=== PATIENT | female | born 1950 | race Caucasian/White ===

== ENCOUNTER → 2017-04-27 | Outpatient (CLI) | payer MEDICARE, OTHER ==
--- NOTE | 2017-04-27 16:07 | WOMENS IMAGING REPORT ---
EXAM DESCRIPTION: BILAT SCREENING MAMMO W/CAD COMPLETED DATE/TIME: 04/27/2017 7:26 am REASON FOR STUDY: ROUTINE BILATERAL SCREENING;Z12.31 Z12.31 ENCNTR SCREEN MAMMOGRAM FOR MALIGNANT N EOPLASM OF AMBER COMPARISON: None. TECHNIQUE: Standard craniocaudal and mediolateral oblique views of each breast recorded using made.coma l acquisition. LIMITATIONS: None. FINDINGS: No masses, calcifications or architectural distortion. No areas of suspicion. Read with the assistance of CAD. .[facility] - R2 Cenova Version 1.3 .[facility] Imaging - R2 Cenova Version 1.3 .[facility] - R2 Cenova Version 2.4 .[facility] [place] - R2 Cenova Version 2.4 .[facility] - R2 Contract Graphic Designer Version 9.2 IMPRESSION: NORMAL MAMMOGRAM. BIRADS 1. BREAST DENSITY: a. The breasts are almost entirely fatty. BIRAD: 1 NEGATIVE RECOMMENDATION: ROUTINE SCREENING COMMENT: The patient has been notified of the results by letter per SA requirements. Additional no tification policies are in place for contacting patient with suspicious or incomplete findings. Quality ID #[id number]: The [employer] recommends an annual screening mammogram for women aged 40 years or over. This facility utilizes a reminder system to ensure that all patients receive reminder letters, and/or direct phone calls for appointments. This includes reminders for routine scr eening mammograms, diagnostic mammograms, or other Breast Imaging Interventions when appropriate. Th is patient will be placed in the appropriate reminder system. The [employer] (ACR) has developed recommendations for screening MRI of the breast s in certain patient populations, to be used in conjunction with mammography. Breast MRI surveillanc e may be appropriate for women with more than 20% lifetime risk of developing breast cancer as deter mined by genetic testing, significant family history of the disease, or history of mantle radiation f or Hodgkins Disease. ACR Practice Guidelines 2008. TECHNICAL DOCUMENTATION: FINDING NUMBER: (1) ASSESSMENT: (1) JOB ID: [id number] [employer]- All Rights Reserved
== END ==
LOC: WI 06:55
PROVIDERS: ATTEND Family Medicine
DX: Z12.31 Encounter for screening mammogram for malignant neoplasm of breast (principal)
CPT/HCPCS: 77067; G0202

== ENCOUNTER → 2018-05-18 | Outpatient (CLI) | payer MEDICARE, OTHER ==
--- NOTE | 2018-05-18 11:40 | WOMENS IMAGING REPORT ---
EXAM DESCRIPTION: 3D SCREENING MAMMO BILAT COMPLETED DATE/TIME: 05/18/2018 7:25 am REASON FOR STUDY: ROUTINE BILATERAL SCREENING;Z12.31 Z12.31 ENCNTR SCREEN MAMMOGRAM FOR MALIGNANT N EOPLASM OF AMBER COMPARISON: [id number] TECHNIQUE: Standard craniocaudal and mediolateral oblique views of each breast recorded using digita l acquisition and breast tomosynthesis. LIMITATIONS: None. FINDINGS: No masses, calcifications or architectural distortion. No areas of suspicion. Read with the assistance of CAD. .[facility] [place] - R2 Cenova Version 1.3 .[facility] Imaging - R2 Cenova Version 1.3 .[facility] - R2 Cenova Version 2.4 .[facility] [place] R2 Cenova Version 2.4 .[facility] - R2 Resident Care Aid Version 9.2 IMPRESSION: NORMAL MAMMOGRAM. BIRADS 1. BREAST DENSITY: a. The breasts are almost entirely fatty. BIRAD: 1 NEGATIVE RECOMMENDATION: ROUTINE SCREENING COMMENT: The patient has been notified of the results by letter per MQSA requirements. Additional no tification policies are in place for contacting patient with suspicious or incomplete findings. Quality ID #225: The [employer] recommends an annual screening mammogram for women aged 40 years or over. This facility utilizes a reminder system to ensure that all patients receive reminder letters, and/or direct phone calls for appointments. This includes reminders for routine scr eening mammograms, diagnostic mammograms, or other Breast Imaging Interventions when appropriate. Th is patient will be placed in the appropriate reminder system. The [employer] (ACR) has developed recommendations for screening MRI of the breast s in certain patient populations, to be used in conjunction with mammography. Breast MRI surveillanc e may be appropriate for women with more than 20% lifetime risk of developing breast cancer as deter mined by genetic testing, significant family history of the disease, or history of mantle radiation f or Hodgkins Disease. ACR Practice Guidelines 2008. DBT Technology DBT is a type of tomographic mammography. With conventional mammography, overlapping breast tissue ma y make lesions difficult to detect, even with good compression. DBT uses an x-ray tube that rotates a round the breast, taking images at different angles. These images are then combined to create thin sl ices of the breast that the radiologist can view as a 3D reconstruction. The Paice unit can perform full-field digital mammograms (2D imaging); or DBT (3D imaging); or both, in a combination mode that quickly performs both the mammogram and the tomosynthesis scan while the breast is still compressed. PQRS 6045F: Fluoroscopic imaging is not utilized for breast tomosynthesis. TECHNICAL DOCUMENTATION: FINDING NUMBER: (1) ASSESSMENT: (1) JOB ID: [id number] [employer]- All Rights Reserved Reading location - IP/workstation name: [email or web address] [email or web address]
== END ==
LOC: WI 07:06
PROVIDERS: ATTEND Family Medicine
DX: Z12.31 Encounter for screening mammogram for malignant neoplasm of breast (principal)
CPT/HCPCS: 77063; 77067

== ENCOUNTER 2018-06-13 10:52 | Emergency (ER) | payer MEDICARE, OTHER ==
--- NOTE | 2018-06-13 11:31 | ER Document Report ---
ED Medical Screen (RME) - General Chief Complaint: Dizziness Stated Complaint: DIZZINESS/LOSS OF BALANCE Time Seen by Provider: 06/13/18 11:22 Primary Care Provider: NADEEM ROQUE MD [Primary Care Provider] - Follow up as needed Mode of Arrival: Ambulatory Information source: Patient Notes: 67-year-old female presents the emergency department with one-week history of feeling off balance. Patient states that when she walks she begins to wobble from side to side and feels as if she is going to fall down. No history of falls or head trauma. Patient states that is getting progressively worse. She is having bilateral earaches and sinus pressure. Denies vertigo, tinnitus, hearing loss, fever, chills. She went to urgent care this morning and they recommended she come to the emergency department for a head CT. I have greeted and performed a rapid initial assessment of this patient. A comprehensive ED assessment and evaluation of the patient, analysis of test results and completion of the medical decision making process will be conducted by additional ED providers. PHYSICAL EXAMINATION: GENERAL: Well-appearing, well-nourished and in no acute distress. HEAD: Atraumatic, normocephalic. EYES: Pupils equal round extraocular movements intact, conjunctiva are normal. ENT: Nares patent NECK: Normal range of motion LUNGS: No respiratory distress Musculoskeletal: Normal range of motion NEUROLOGICAL: Normal speech, normal gait. PSYCH: Normal mood, normal affect. SKIN: Warm, Dry, normal turgor, no rashes or lesions noted. TRAVEL OUTSIDE OF THE [place] IN LAST 30 DAYS: No - Related Data Allergies/Adverse Reactions: No Known Allergies Allergy (Verified 06/13/18 11:03) Past Medical History - Social History Chew tobacco use (# tins/day): No Frequency of alcohol use: None Drug Abuse: None - Past Medical History Cardiac Medical History: Reports: Hx Hypercholesterolemia, Hx Hypertension Endocrine Medical History: Reports: Hx Diabetes Mellitus Type 2 Renal/ Medical History: Denies: Hx Peritoneal Dialysis Past Surgical History: Reports: Hx Orthopedic Surgery - back & left hip replacement Physical Exam - Vital signs Vitals: Temp Pulse Resp BP Pulse Ox 99.0 F 79 20 150/71 H 95 06/13/18 11:06 06/13/18 11:06 06/13/18 11:06 06/13/18 11:06 06/13/18 11:06 Course - Vital Signs Vital signs: Temp Pulse Resp BP Pulse Ox 99.0 F 79 20 150/71 H 95 06/13/18 11:06 06/13/18 11:06 06/13/18 11:06 06/13/18 11:06 06/13/18 11:06 Doctor's Discharge - Discharge Referrals: NADEEM ROQUE MD [Primary Care Provider] - Follow up as needed
--- NOTE | 2018-06-13 12:26 | RADIOLOGY REPORT (SQ) ---
EXAM DESCRIPTION: CT HEAD WITHOUT COMPLETED DATE/TIME: 06/13/2018 12:16 pm REASON FOR STUDY: falling down COMPARISON: None. TECHNIQUE: Axial images acquired through the brain without intravenous contrast. Images reviewed wi th bone, brain and subdural windows. Additional sagittal and coronal reconstructions were generated. Images stored on PACS. All CT scanners at this facility use dose modulation, iterative reconstruction, and/or weight based d osing when appropriate to reduce radiation dose to as low as reasonably achievable (ALARA). [facility]: Dose Right [facility]: CareDose [facility]: Dose Right [facility]: Teradose 4D [facility]: XenSource RADIATION DOSE: CT Rad equipment meets quality standard of care and radiation dose reduction techniq ues were employed. CTDIvol: 53.2 mGy. DLP: 1017 mGy-cm. mGy. LIMITATIONS: None. FINDINGS: VENTRICLES: Normal size and contour. CEREBRUM: No masses. No hemorrhage. No midline shift. No evidence for acute infarction. Normal gra y/white matter differentiation. No areas of low density in the white matter. CEREBELLUM: No masses. No hemorrhage. No alteration of density. No evidence for acute infarction. EXTRAAXIAL SPACES: No fluid collections. No masses. ORBITS AND GLOBE: No intra- or extraconal masses. Normal contour of globe without masses. CALVARIUM: No fracture. PARANASAL SINUSES: No fluid or mucosal thickening. SOFT TISSUES: No mass or hematoma. OTHER: No other significant finding. IMPRESSION: No acute intracranial pathology. EVIDENCE OF ACUTE STROKE: NO. COMMENT: Quality ID # [id number]: Final reports with documentation of one or more dose reduction techniques (e.g., Automated exposure control, adjustment of the mA and/or kV according to patient size, use of iterative reconstruction technique) TECHNICAL DOCUMENTATION: JOB ID: [id number] [employer]- All Rights Reserved Reading location - IP/workstation name: [email or web address]
[2018-06-13] MEDS ORDERED: NORMAL SALINE 1000 ML 1,000 ML IV ONE (12:29)
[2018-06-13] MEDS ORDERED: MECLIZINE HCL 25 MG TABLET PO ONE (12:29)
--- NOTE | 2018-06-13 12:32 | ER Document Report ---
ED Dizziness/Weakness - General Chief Complaint: Dizziness Stated Complaint: DIZZINESS/LOSS OF BALANCE Time Seen by Provider: 06/13/18 11:22 Primary Care Provider: NADEEM ROQUE MD [Primary Care Provider] - Follow up as needed Mode of Arrival: Ambulatory Notes: 67-year-old female who presents with dizziness. Patient stated this began yesterday. She stated upon standing she felt dizzy. Says it is worse when she walks she gets a little short of breath with this but attributes this to anxiety. States when she sitting still she is not dizzy she denies any extremity numbness tingling or weakness. Nuys chest pain denies shortness of breath. Is concerned she may have a UTI she has had some decreased frequency. Denies abdominal pain. Denies falls or head injury. TRAVEL OUTSIDE OF THE [place] IN LAST 30 DAYS: No - Related Data Allergies/Adverse Reactions: No Known Allergies Allergy (Verified 06/13/18 11:03) Past Medical History - General Information source: Patient - Social History Smoking Status: Never Smoker Chew tobacco use (# tins/day): No Frequency of alcohol use: None Drug Abuse: None Family History: Other Patient has suicidal ideation: No Patient has homicidal ideation: No - Past Medical History Cardiac Medical History: Reports: Hx Hypercholesterolemia, Hx Hypertension Endocrine Medical History: Reports: Hx Diabetes Mellitus Type 2 Renal/ Medical History: Denies: Hx Peritoneal Dialysis Past Surgical History: Reports: Hx Orthopedic Surgery - back & left hip replacement Review of Systems - Review of Systems Cardiovascular: Dyspnea. denies: Chest pain Respiratory: Short of breath Gastrointestinal: denies: Abdominal pain, Nausea, Vomiting Genitourinary: Frequency. denies: Dysuria Neurological/Psychological: Headaches, Other - Dizziness -: Yes All other systems reviewed and negative Physical Exam - Vital signs Vitals: Temp Pulse Resp BP Pulse Ox 99.0 F 79 20 150/71 H 95 06/13/18 11:06 06/13/18 11:06 06/13/18 11:06 06/13/18 11:06 06/13/18 11:06 - Notes Notes: GENERAL_APPEARANCE: well_nourished, alert, cooperative, patient lying on the stretcher with eyes closed. VITALS: reviewed, see vital signs table. HEAD: no_swelling\tenderness on the head. EYES: PERRL, EOMI, conjunctiva_clear. NOSE: no_nasal_discharge. MOUTH: (-)decreased moisture. THROAT: no_tonsilar_inflammation, no_airway_obstruction. no_lymphadenopathy NECK: supple, no_neck_tenderness, (-)thyromegaly. BACK: no_back_tenderness. CHEST_WALL: no_chest_tenderness. LUNGS: no_wheezing, no_rales, no_rhonchi, (-)accessory muscle use, good air exchange bilateral. HEART: normal_rate, normal_rhythm, normal_S1, normal_S2, (-)S3, (-)S4, no_murmur, no_rub. ABDOMEN: normal_BS, soft, no_abd_tenderness, (-)guarding, (-)rebound, no_organomegaly, no_abd_masses. EXTREMITIES: good pulses in all_extremities, no_swelling\tenderness in the extremities, no_edema. SKIN: warm, dry, good_color, no_rash. MENTAL_STATUS: speech_clear, oriented_X_3, normal_affect, responds_appropriately to questions. NEURO: Neg Motor or Sensory Deficits on exam, CN 2-12 intact, DTR 2+ symmetric x 4, No cerbellar signs Course - Re-evaluation Re-evalutation: 06/13/18 12:31 Patient presents with dizziness. Which is worse upon standing and exerting herself. States is only when she really walks. Her neuro exam is nonfocal. The patient almost gives the impression she has vertigo but says she does not. She is sitting perfectly still on the stretcher with her eyes closed. She denies any vertigo at rest. Only when she stands and walks. We will get a CT scan of the brain check some generalized lab work. She is concerned she may have a UTI. Will check a urine. Even though she is denying vertigo we will give her a liter of fluid and some meclizine to see if this helps. 06/13/18 15:04 We got the patient up and walked her and she did fine and feels much better. Her dizziness had resolved. I will send her home on some meclizine. I sent spoke with her about what this could be possibly posterior circulation strokes she does have a UTI which it would be very atypical for this to cause dizziness. We spoke at length. She is comfortable going home with antibiotics and meclizine. If she has recurrent symptoms or things feel as if they are getting worse or not improving she is to return to the ER and have us reevaluate her. Again we spoke at length about posterior circulation strokes. - Vital Signs Vital signs: Temp Pulse Resp BP Pulse Ox 99.0 F 66 20 124/67 95 06/13/18 11:06 06/13/18 11:38 06/13/18 11:06 06/13/18 11:38 06/13/18 11:06 - Laboratory Result Diagrams: 06/13/18 13:10 06/13/18 12:50 Laboratory results interpreted by me: 06/13/18 06/13/18 06/13/18 12:50 12:50 13:10 RDW 14.3 H Chloride 108 H Glucose 119 H Urine Nitrite POSITIVE H Ur Leukocyte Esterase MODERATE H Urine Ascorbic Acid 40 H Discharge - Discharge Clinical Impression: Vertigo UTI (urinary tract infection) Qualifiers: Urinary tract infection type: acute cystitis Hematuria presence: without hematuria Qualified Code(s): N30.00 - Acute cystitis without hematuria Disposition: HOME, SELF-CARE Instructions: Urinary Tract Infection ([facility]), Vertigo ([facility]), Meclizine ([facility]) Additional Instructions: Take the vertigo every 6 hours as needed for dizziness. Drink plenty of fluids. Please take the antibiotics for urinary tract infection. If your symptoms recur and these are not helped by the medications return to the ER. Again we have spoke about posterior circulation/cerebellar strokes though I think this is less likely with you it is not completely ruled out. Follow-up is very important. Prescriptions: Meclizine HCl [Antivert 25 mg Tablet] 25 mg PO TID PRN #21 tablet PRN Reason: Nitrofurantoin/Nitrofuran Mac [Macrobid 100 mg Capsule] 1 tab PO BID #20 capsule Referrals: NADEEM ROQUE MD [Primary Care Provider] - Follow up as needed
[2018-06-13 13:14] LABS: APPEARANCE,URINE SLIGHTLY-CLOUDY; BILIRUBIN,URINE NEGATIVE (NEGATIVE); COLOR,URINE YELLOW; GLUCOSE, URINE NEGATIVE (NEGATIVE); KETONES,URINE NEGATIVE (NEGATIVE); LEUKOCYTE ESTERASE,URINE MODERATE (NEGATIVE); NITRITE,URINE POSITIVE (NEGATIVE); PROTEIN,URINE NEGATIVE (NEGATIVE); URINE SPECIFIC GRAVITY 1.019; UROBILINOGEN,URINE NEGATIVE mg/dL (<2.0)
[2018-06-13 13:26] LABS: ALANINE AMINOTRANSFERASE 47 U/L (9-52); ALBUMIN 4.5 g/dL (3.5-5.0); ALKALINE PHOSPHATASE 81 U/L (38-126); ANION GAP 11 (5-19); ASPARTATE AMINO TRANSFERASE 35 U/L (14-36); BILIRUBIN,DIRECT 0.1 mg/dL (0.0-0.4); BILIRUBIN,TOTAL 0.9 mg/dL (0.2-1.3); BLOOD UREA NITROGEN 18 mg/dL (7-20); CALCIUM 9.4 mg/dL (8.4-10.2); CARBON DIOXIDE 23 mmol/L (22-30); CHLORIDE 108 mmol/L (98-107); GLUCOSE 119 mg/dL (75-110); POTASSIUM 4.5 mmol/L (3.6-5.0); SODIUM 141.7 mmol/L (137-145)
[2018-06-13 13:32] LABS: ABSOLUTE BASOPHILS # (AUTO) 0.1 10^3/uL (0.0-0.2); ABSOLUTE EOSINOPHILS # (AUTO) 0.1 10^3/uL (0.0-0.6); ABSOLUTE LYMPHOCYTES (AUTO) 2.4 10^3/uL (0.5-4.7); ABSOLUTE MONOCYTES (AUTO) 0.5 10^3/uL (0.1-1.4); ABSOLUTE NEUT (AUTO) 5.9 10^3/uL (1.7-8.2); BASOPHILS % (AUTO) 0.8 % (0-2); EOSINOPHILS % (AUTO) 1.4 % (0-6); HEMATOCRIT 38.4 % (36.0-47.0); HEMOGLOBIN 12.8 g/dL (12.0-15.5); LYMPHOCYTES % (AUTO) 26.5 % (13-45); MEAN CORPUSCULAR HGB CONC 33.4 g/dL (32.0-36.0); MEAN CORPUSCULAR VOLUME 87 fl (80-97); MONOCYTES % (AUTO) 5.4 % (3-13); PLATELET COUNT 217 10^3/uL (150-450); RED BLOOD COUNT 4.42 10^6/uL (3.72-5.28); RED CELL DISTRIBUTION WIDTH 14.3 % (11.5-14.0); SEGMENTED NEUTROPHILS % (AUTO) 65.9 % (42-78); TOTAL CELLS COUNTED % (AUTO) 100 %; WHITE BLOOD COUNT 8.9 10^3/uL (4.0-10.5)
--- NOTE | 2018-06-13 13:56 | EKG REPORT ---
SEVERITY:- ABNORMAL ECG - SINUS RHYTHM NONSPECIFIC T ABNORMALITIES, LATERAL LEADS : Confirmed by: Srinivas Hayes MD 13-Jun-2018 13:56:01
[2018-06-13 15:34] VITALS: BP 142/74
== END 2018-06-13 15:10 | disposition home or self-care (01) ==
LOC: ER 10:52
DX: R42 Dizziness and giddiness (principal); N30.00 Acute cystitis without hematuria; R06.02 Shortness of breath; I10 Essential (primary) hypertension; E11.9 Type 2 diabetes mellitus without complications
CPT/HCPCS: 93005; 99284; 96360; 36415; 85025; 80053; 81001; 84484; 70450; 93010; A9270; J7030

== ENCOUNTER 2019-06-26 14:57 | Emergency (ER) | payer MEDICARE, OTHER ==
[2019-06-26] MEDS ORDERED: ONDANSETRON 4 MG TAB.RAPDIS PO ONE (15:35)
--- NOTE | 2019-06-26 15:37 | ER Document Report ---
ED Medical Screen (RME) - General Chief Complaint: High Blood Sugar Stated Complaint: NAUSEA/BLOOD SUGAR ISSUE Time Seen by Provider: 06/26/19 15:32 Primary Care Provider: NADEEM ROQUE MD [Primary Care Provider] - Follow up as needed Mode of Arrival: Ambulatory Information source: Patient Notes: 68-year-old female with no previous history presents emergency department with reports that they checked her sugar at the [employer] where she works and was in the high 400s. Patient reports she has had blurry vision for the last couple weeks figured it was time to get a pair of new glasses. She also reports she felt nauseated today not feeling well so her coworkers checked her vital signs. Her vital signs were stable so they checked her sugar. She denies history of diabetes. She reports she is a little bit thirsty but denies increased thirst increased urinary frequency. I have greeted and performed a rapid initial assessment of this patient. A co mprehensive ED assessment and evaluation of the patient, analysis of test results and completion of the medical decision making process will be conducted by additional ED providers. TRAVEL OUTSIDE OF THE [place] IN LAST 30 DAYS: No - Related Data Allergies/Adverse Reactions: No Known Allergies Allergy (Verified 06/26/19 15:31) Past Medical History - Past Medical History Cardiac Medical History: Reports: Hx Hypercholesterolemia, Hx Hypertension Endocrine Medical History: Reports: Hx Diabetes Mellitus Type 2 Renal/ Medical History: Denies: Hx Peritoneal Dialysis Past Surgical History: Reports: Hx Orthopedic Surgery - back & left hip replacement Physical Exam - Vital signs Vitals: Temp Pulse Resp BP Pulse Ox 99.7 F 98 18 150/88 H 96 06/26/19 15:15 06/26/19 15:15 06/26/19 15:15 06/26/19 15:15 06/26/19 15:15 Course - Vital Signs Vital signs: Temp Pulse Resp BP Pulse Ox 99.7 F 98 18 150/88 H 96 06/26/19 15:15 06/26/19 15:15 06/26/19 15:15 06/26/19 15:15 06/26/19 15:15 Doctor's Discharge - Discharge Referrals: NADEEM ROQUE MD [Primary Care Provider] - Follow up as needed
[2019-06-26] MEDS ORDERED: NORMAL SALINE 1000 ML 1,000 ML IV ONE ×2 (16:21→21:03)
[2019-06-26 16:37] LABS: ABSOLUTE BASOPHILS # (AUTO) 0.1 10^3/uL (0.0-0.2); ABSOLUTE EOSINOPHILS # (AUTO) 0.1 10^3/uL (0.0-0.6); ABSOLUTE MONOCYTES (AUTO) 0.6 10^3/uL (0.1-1.4); EOSINOPHILS % (AUTO) 0.9 % (0-6); TOTAL CELLS COUNTED % (AUTO) 100 %
[2019-06-26 16:44] LABS: APPEARANCE,URINE CLEAR; BILIRUBIN,URINE NEGATIVE (NEGATIVE); COLOR,URINE STRAW; GLUCOSE, URINE >=500 mg/dL (NEGATIVE); KETONES,URINE 20 mg/dL (NEGATIVE); LEUKOCYTE ESTERASE,URINE NEGATIVE (NEGATIVE); NITRITE,URINE NEGATIVE (NEGATIVE); PROTEIN,URINE NEGATIVE (NEGATIVE); URINE SPECIFIC GRAVITY 1.031; UROBILINOGEN,URINE NEGATIVE mg/dL (<2.0)
[2019-06-26 16:48] LABS: ABSOLUTE LYMPHOCYTES (AUTO) 1.4 10^3/uL (0.5-4.7); ABSOLUTE NEUT (AUTO) 6.8 10^3/uL (1.7-8.2); BASOPHILS % (AUTO) 0.6 % (0-2); HEMATOCRIT 40.4 % (36.0-47.0); HEMOGLOBIN 13.8 g/dL (12.0-15.5); LYMPHOCYTES % (AUTO) 15.4 % (13-45); MEAN CORPUSCULAR HGB CONC 34.2 g/dL (32.0-36.0); MEAN CORPUSCULAR VOLUME 88 fl (80-97); MONOCYTES % (AUTO) 6.6 % (3-13); PLATELET COUNT 238 10^3/uL (150-450); RED BLOOD COUNT 4.61 10^6/uL (3.72-5.28); RED CELL DISTRIBUTION WIDTH 14.2 % (11.5-14.0); SEGMENTED NEUTROPHILS % (AUTO) 76.5 % (42-78); WHITE BLOOD COUNT 8.9 10^3/uL (4.0-10.5)
[2019-06-26 16:56] LABS: ALBUMIN 4.3 g/dL (3.5-5.0); ALKALINE PHOSPHATASE 110 U/L (38-126); ANION GAP 14 (5-19); ASPARTATE AMINO TRANSFERASE 38 U/L (14-36); BILIRUBIN,DIRECT 0.1 mg/dL (0.0-0.4); BLOOD UREA NITROGEN 14 mg/dL (7-20); CALCIUM 9.6 mg/dL (8.4-10.2); CARBON DIOXIDE 23 mmol/L (22-30); CHLORIDE 98 mmol/L (98-107); POTASSIUM 4.5 mmol/L (3.6-5.0); TOTAL PROTEIN 7.3 g/dL (6.3-8.2)
[2019-06-26 17:17] LABS: GLUCOSE 558 mg/dL (75-110)
[2019-06-26] MEDS ORDERED: INSULIN REG, HUMAN 100 UNIT/ML 3 ML VIAL (PYX) SUBCUT ONE (17:27)
[2019-06-26 17:33] LABS: VENOUS BLOOD BASE EXCESS -2.1 mmol/L; VENOUS BLOOD HCO3 21.9 mmol/L (20-32); VENOUS BLOOD PCO2 35.3 mmHg (35-63); VENOUS BLOOD PH 7.41 (7.30-7.42)
--- NOTE | 2019-06-26 20:28 | ER Document Report ---
ED Blood Sugar Problem - General Chief Complaint: High Blood Sugar Stated Complaint: NAUSEA/BLOOD SUGAR ISSUE Time Seen by Provider: 06/26/19 15:32 Primary Care Provider: NADEEM ROQUE MD [Primary Care Provider] - Follow up tomorrow Mode of Arrival: Ambulatory Notes: Patient is a 68-year-old female with a history of type 2 diabetes who presents the emergency department with blurriness and feeling faint earlier today. She was seen by her primary care provider and her blood sugar was high. She was then referred to the emergency department. Patient currently takes metformin daily and sometimes takes it twice a day, or sometimes takes it at night. She takes a total of 2000 mg daily. Patient also states that there has been a "gastrointestinal bug going around" at her work. She is a nursing executive. She received Zofran in triage and states that she does feel better. TRAVEL OUTSIDE OF THE [place] IN LAST 30 DAYS: No - Related Data Allergies/Adverse Reactions: No Known Allergies Allergy (Verified 06/26/19 15:31) Past Medical History - General Information source: Patient - Social History Smoking Status: Never Smoker Chew tobacco use (# tins/day): No Frequency of alcohol use: None Drug Abuse: None Family History: Other Patient has suicidal ideation: No Patient has homicidal ideation: No - Past Medical History Cardiac Medical History: Reports: Hx Hypercholesterolemia, Hx Hypertension Endocrine Medical History: Reports: Hx Diabetes Mellitus Type 2 Renal/ Medical History: Denies: Hx Peritoneal Dialysis Past Surgical History: Reports: Hx Orthopedic Surgery - back & left hip replacement Review of Systems - Review of Systems Notes: REVIEW OF SYSTEMS: CONSTITUTIONAL : Denies recent illness. Denies recent unintentional weight loss. Denies fever, chills, or sweats. HPI. EENT: Denies eye, ear, throat, or mouth pain, discharge, or symptoms. Denies nasal or sinus congestion. See HPI. CARDIOVASCULAR: Denies chest pain. RESPIRATORY: Denies shortness of breath, cough, congestion, difficulty breathing, or wheezing. GASTROINTESTINAL: Denies nausea, vomiting, and diarrhea. Denies abdominal pain. Denies constipation. GENITOURINARY: Denies difficulty urinating, burning, blood in urine, urgency or frequency. MUSCULOSKELETAL: Denies neck and back pain. Denies joint pain or swelling. SKIN: Denies rash, itchiness, or lesions HEMATOLOGIC : Denies easy bruising or bleeding. LYMPHATIC: Denies swollen, painful, enlarged glands. NEUROLOGICAL: Denies no numbness or tingling denies weakness. Denies headache. Denies altered mental status. Denies alteration in speech. PSYCHIATRIC: Denies stress, anxiety, alteration in sleep patterns, or dep ression. All other systems reviewed and negative. Physical Exam - Vital signs Vitals: Temp Pulse Resp BP Pulse Ox 99.7 F 98 18 150/88 H 96 06/26/19 15:15 06/26/19 15:15 06/26/19 15:15 06/26/19 15:15 06/26/19 15:15 - Notes Notes: PHYSICAL EXAMINATION: GENERAL: Appears well, healthy, well-nourished, no acute distress. HEAD: Normocephalic, atraumatic. EYES: PERRL, conjunctiva normal, all extraocular movements intact, sclera nonicteric ENT: Moist mucous membranes. NECK: Supple, no noticeable swelling, redness, rash. Normal range of motion. LUNGS: Equal breath sounds bilaterally and clear to auscultation. No wheezes rales or rhonchi. CARDIOVASCULAR: S1-S2, regular rate, regular rhythm. Radial pulses 2+, normal. ABDOMEN: Normoactive bowel sounds. Soft, nontender, no guarding, no rebound tenderness, and no masses palpated. EXTREMITIES: Normal strength and range of motion, no pitting or edema. No cyanosis. NEUROLOGICAL: Moves all extremities upon command. Strength 5/5 in all extremities. PSYCH: Normal mood, normal affect. SKIN: Warm, dry. No rash, lesions, ulcerations noted. Normal skin turgor. Course - Re-evaluation Re-evalutation: 06/26/19 20:27 Hematology is unremarkable with no leukocytosis or anemia noted. Blood gas ordered in triage is normal. Blood sugar was 558 and has come down to 468 with 10 units of insulin. Her hemoglobin A1c is 13.8. We will recheck the patient's blood sugar after her fluids are done. 06/26/19 23:04 Patient's blood sugar is now 122. She will follow-up with her primary care provider tomorrow. She is in agreement with this plan. Follow-up precautions were given. Verbal discharge instructions were given to the patient. They verbalized understanding. They are stable for discharge. - Vital Signs Vital signs: Temp Pulse Resp BP Pulse Ox 99.1 F 88 18 136/80 H 96 06/26/19 22:45 06/26/19 22:45 06/26/19 22:45 06/26/19 22:45 06/26/19 22:45 - Laboratory Result Diagrams: 06/26/19 16:10 06/26/19 16:10 Laboratory results interpreted by me: 06/26/19 06/26/19 06/26/19 16:10 16:10 16:10 RDW 14.2 H Sodium 134.5 L Glucose 558 H* POC Glucose Hemoglobin A1c % 13.8 H AST 38 H Urine Glucose (UA) Urine Ketones 06/26/19 06/26/19 06/26/19 16:10 19:57 20:58 RDW Sodium Glucose POC Glucose 468 H* 417 H* Hemoglobin A1c % AST Urine Glucose (UA) >=500 H Urine Ketones 20 H 06/26/19 22:30 RDW Sodium Glucose POC Glucose 122 H Hemoglobin A1c % AST Urine Glucose (UA) Urine Ketones Discharge - Discharge Clinical Impression: Hyperglycemia, Hemoglobin A1C greater than 9%, indicating poor diabetic control, Blurred vision Condition: Stable Disposition: HOME, SELF-CARE Additional Instructions: You were seen today in the emergency department for dizziness and high blood sugar. Your hemoglobin A1c is 13.8. You were given fluids and insulin here in the emergency department. Please follow-up with your primary care provider in regards to this visit. Please make sure that you are paying close attention to what you are eating, as this affects your blood sugar. Please check your blood sugar in the mornings and before meals to see what they are and report these to your primary care provider. Referrals: NADEEM ROQUE MD [Primary Care Provider] - Follow up tomorrow
[2019-06-26] MEDS ORDERED: INSULIN REG, HUMAN 100 UNIT/ML 3 ML VIAL (PYX) IV ONE (21:02)
[2019-06-26 22:46] VITALS: BP 136/80
[2019-06-26] MEDS ORDERED: ONDANSETRON ODT 4 MG TAB (6 TAB/ER DISP) PO PRN (22:46)
== END 2019-06-26 23:16 | disposition home or self-care (01) ==
LOC: ER 14:57
DX: E11.65 Type 2 diabetes mellitus with hyperglycemia (principal); H53.8 Other visual disturbances; R11.0 Nausea
CPT/HCPCS: 36415; 80053; 81001; 82803; 82962; 83036; 85025; 96360; 96361; 99284; J1815; J7030; S0119